=== PATIENT | male | born 1955 | race Caucasian/White ===

== ENCOUNTER 2018-09-05 13:26 | Inpatient (IN) ==
[~2018-09-05 13:26] MED LIST: *HR* Amiodarone 150 MG/3 ML VIAL IVPB ONE; *HR* EPINEPHrine 1 MG/10 ML SYRINGE IVP ONE; *HR* Magnesium Sulfate 2 GM/50 ML PIGGYBACK IVPB ONE
[2018-09-05] MEDS ORDERED: *HR* Heparin 5,000 UNIT/ML VIAL IVP ONE (13:35)
[2018-09-05] MEDS ORDERED: *HR* Ticagrelor 90 MG TABLET PO ONE (13:35)
[2018-09-05] MEDS ORDERED: 0.9 % Sodium Chloride 1,000 ML ONE (13:47)
[2018-09-05] MEDS ORDERED: Nitroglycerin 1,000 MCG/10 ML VIAL IV ONE (13:48)
[2018-09-05] MEDS ORDERED: ISOVUE-370 200 ML INFUS..BTL ONE ×2 (13:48→14:26)
[2018-09-05] MEDS ORDERED: *HR* Heparin 10,000 UNIT/10 ML VIAL ONE (13:48)
[2018-09-05] MEDS ORDERED: Heparin 1,000 UNITS/500 mL 500 ML ONE (13:48)
[2018-09-05 13:50] LABS: Basophils % 0.4 %; Eosinophils # 0.1 K/mcL (0.0-0.6); Eosinophils % 1.2 %; Hematocrit 46.7 % (37.5-50.1); Hemoglobin 15.9 g/dL (12.9-16.9); Immature Granulocytes % 0.5 % (0-4); Lymphocytes # 2.3 K/mcL (0.6-4.6); Lymphocytes % 23.3 %; Mean Corpuscular Hemoglobin 31.7 pg (28.0-33.3); Mean Platelet Volume 9.7 fL (9.4-12.4); Monocytes # 0.8 K/mcL (0.0-1.3); Monocytes % 7.5 %; Neutrophils # 6.7 K/mcL (1.6-8.9); Platelet Count 204 K/mcL (140-400); Red Blood Count 5.02 M/mcL (4.19-5.50); Red Cell Distribution Width 13.4 % (11.5-14.5); Segmented Neutrophils % 67.1 %
[2018-09-05 13:59] LABS: Prothrombin Time 11.4 Seconds (9.4-12.1)
[2018-09-05 14:02] LABS: Activated Partial Thrombo Time 29.9 Seconds (26.0-36.0)
[2018-09-05] MEDS ORDERED: *HR* Midazolam HCl 2 MG/2 ML VIAL ONE (14:11)
[2018-09-05] MEDS ORDERED: *HR* FentaNYL (PF) 100 MCG/2 ML VIAL ONE (14:11)
[2018-09-05] MEDS ORDERED: Tirofiban 12.5 MG/250ML 12.5 MG/250 ML BAG ONE (14:17)
[2018-09-05 14:19] LABS: BUN/Creatinine Ratio 14 (6-26); Blood Urea Nitrogen 17 mg/dL (8-23); Calcium 10.3 mg/dL (8.6-10.3); Carbon Dioxide 24 mEq/L (23-29); Chloride 104 mEq/L (98-107); Glucose 160 mg/dL (70-105); Magnesium 1.8 mg/dL (1.6-2.6); Osmolality,Calculated 289 (280-300); Sodium 137 mEq/L (136-145); Troponin I < 0.03 ng/mL (< 0.04); eGFR For African Americans > 60 (> 60); eGFR For Non-African Americans > 60 (> 60)
[2018-09-05] MEDS ORDERED: Ondansetron 4 MG/2 ML VIAL ONE (14:44)
[2018-09-05] MEDS ORDERED: Amiodarone Premix 360 MG/200 ML BAG IVC ONE (15:10)
[2018-09-05] MEDS ORDERED: Tirofiban 12.5 MG/250ML 12.5 MG/250 ML BAG IVC SCH (15:15)
[2018-09-05 15:52] LABS: Basophils % 0.2 %; Eosinophils % 0.2 %; Hematocrit 45.7 % (37.5-50.1); Immature Granulocytes % 0.8 % (0-4); Lymphocytes # 1.3 K/mcL (0.6-4.6); Lymphocytes % 9.1 %; Mean Corpuscular HGB Conc 32.8 g/dL (31.6-35.5); Mean Corpuscular Hemoglobin 31.4 pg (28.0-33.3); Mean Corpuscular Volume 95.8 fL (83.0-100.0); Mean Platelet Volume 9.7 fL (9.4-12.4); Monocytes # 0.5 K/mcL (0.0-1.3); Monocytes % 3.5 %; Neutrophils # 12.1 K/mcL (1.6-8.9); Platelet Count 193 K/mcL (140-400); Red Blood Count 4.77 M/mcL (4.19-5.50); Red Cell Distribution Width 13.4 % (11.5-14.5); Segmented Neutrophils % 86.2 %
[2018-09-05 16:00] LABS: Prothrombin Time 11.7 Seconds (9.4-12.1)
[2018-09-05 16:09] LABS: BUN/Creatinine Ratio 16 (6-26); Blood Urea Nitrogen 18 mg/dL (8-23); Calcium 9.2 mg/dL (8.6-10.3); Carbon Dioxide 21 mEq/L (23-29); Chloride 105 mEq/L (98-107); Glucose 148 mg/dL (70-105); Osmolality,Calculated 287 (280-300); Potassium 3.6 mEq/L (3.5-5.1); Sodium 136 mEq/L (136-145); eGFR For African Americans > 60 (> 60); eGFR For Non-African Americans > 60 (> 60)
[2018-09-05 16:14] LABS: Activated Partial Thrombo Time 52.6 Seconds (26.0-36.0)
[2018-09-05] MEDS: Amiodarone Premix 360 MG/200 ML BAG IVC SCH (19:18)
[2018-09-05] MEDS: *HR* Ticagrelor 90 MG TABLET PO SCH (20:29)
[2018-09-06 05:48] LABS: Basophils % 0.2 %; Eosinophils # 0.1 K/mcL (0.0-0.6); Eosinophils % 0.9 %; Hematocrit 44.1 % (37.5-50.1); Hemoglobin 14.8 g/dL (12.9-16.9); Immature Granulocytes % 0.3 % (0-4); Lymphocytes # 2.7 K/mcL (0.6-4.6); Lymphocytes % 22.5 %; Mean Corpuscular HGB Conc 33.6 g/dL (31.6-35.5); Mean Corpuscular Volume 95.5 fL (83.0-100.0); Monocytes # 0.8 K/mcL (0.0-1.3); Monocytes % 6.9 %; Neutrophils # 8.2 K/mcL (1.6-8.9); Platelet Count 184 K/mcL (140-400); Red Blood Count 4.62 M/mcL (4.19-5.50); Red Cell Distribution Width 13.6 % (11.5-14.5); Segmented Neutrophils % 69.2 %; White Blood Count 11.9 K/mcL (4.3-11.1)
[2018-09-06] MEDS: Amiodarone Premix 360 MG/200 ML BAG IVC SCH ×3 (06:10→17:38)
[2018-09-06 06:12] LABS: BUN/Creatinine Ratio 18 (6-26); Blood Urea Nitrogen 21 mg/dL (8-23); Calcium 8.7 mg/dL (8.6-10.3); Carbon Dioxide 23 mEq/L (23-29); Chloride 104 mEq/L (98-107); Glucose 125 mg/dL (70-105); Osmolality,Calculated 288 (280-300); Sodium 137 mEq/L (136-145); eGFR For African Americans > 60 (> 60); eGFR For Non-African Americans > 60 (> 60)
[2018-09-06] MEDS: *HR* Ticagrelor 90 MG TABLET PO SCH ×2 (08:03→19:48)
[2018-09-06] MEDS ORDERED: Aspirin 81 MG TAB.CHEW PO SCH (09:00)
[2018-09-07] MEDS: *HR* Ticagrelor 90 MG TABLET PO SCH ×2 (08:55→20:00)
[2018-09-07] MEDS: Aspirin 81 MG TAB.CHEW PO SCH (08:55)
[2018-09-08 07:47] VITALS: BP 122/78
[2018-09-08] MEDS: *HR* Ticagrelor 90 MG TABLET PO SCH (09:52)
[2018-09-08] MEDS: Aspirin 81 MG TAB.CHEW PO SCH (09:52)
== END 2018-09-08 10:50 | disposition home or self-care (01) | DRG 246 ==
LOC: EMEROOARM 13:26 → ICNU 13:49 → 2NENU 09-07 19:00
PROVIDERS: ADMIT Internal Medicine Cardiovascular Disease; ATTEND Internal Medicine Cardiovascular Disease